=== PATIENT | male | born 1960 | race Caucasian/White ===

== ENCOUNTER 2017-05-09 11:25 | Emergency (ER) | payer BC ==
[2017-05-09 11:28] VITALS: BP 187/115; PULSE 85; RESP 18; TEMP 98.5; O2SAT 97
[2017-05-09] MEDS ORDERED: LISI20TA PO (12:16)
[2017-05-09] MEDS ORDERED: SIMV20TA PO (12:16)
[2017-05-09] MEDS ORDERED: DOXYCYCLINE HYCLATE 100 MG CAP PO ONE (12:30)
[2017-05-09] MEDS ORDERED: TETANUS/DIPHTHERIA TOXOID ADULT 0.5 ML VIAL IM ONE (12:30)
[2017-05-09] MEDS ORDERED: MORPHINE SULFATE 2 MG/ML INJ IM ONE (12:30)
--- NOTE | 2017-05-09 12:31 | RADRPT ---
EXAM DATE/TIME: 05/09/2017 11:52 [place] COMPARISON: No previous studies available for comparison. INDICATIONS : Foreign body, possible stingray srinivasan. MEDICAL HISTORY : None. SURGICAL HISTORY : None. ENCOUNTER: Initial ACUITY: 1 day PAIN SCORE: 10/10 LOCATION: Left proximal 4th digit. FINDINGS: Two view examination of the left hand demonstrates no soft tissue swelling, dislocation, or fracture. The joint spaces are maintained. Bony mineralization is normal. No definite radiopaque foreign yimi dies demonstrated. CONCLUSION: No definite radiopaque foreign body. Boyd Joseph MD on May 09, 2017 at 12:28 Board Certified Radiologist. This report was verified electronically.
[2017-05-09] MEDS ORDERED: DOXY100C PO (12:33)
[2017-05-09] MEDS ORDERED: IBUP1TAB7 PO (12:33)
[2017-05-09] MEDS ORDERED: NORC5TAB PO (12:33)
--- NOTE | 2017-05-09 12:33 | PD ---
HPI Chief Complaint: Bite or Sting Time Seen by Provider: 12:12 Travel History International Travel<30 days: No Contact w/Intl Traveler<30days: No Traveled to known affect area: No History of Present Illness HPI 56-year-old male presents to the emergency Department with complaint of a stingray sting to his left hand fourth digit that occurred today while fishing. Denies being up-to-date on his tetanus x-ray showed. Denies anesthesias, loss of sensation to the affected hand. Reports decreased range of motion at the MCP joints of the left hand. Reports swelling and redness. Pain is 7/10. Better under hot water. He describes it as a burning sensation. No known allergies. Has no other medical complaints. No other modifying factors or associated signs and symptoms. PFSH Past Medical History Cardiovascular Problems: Yes (HTN) Hypertension: Yes Kidney Stones: Yes Tetanus Vaccination: > 5 Years Past Surgical History Genitourinary Surgery: Yes (for kidney stone) Social History Alcohol Use: Yes Tobacco Use: No Substance Use: No Allergies-Medications (Allergen,Severity, Reaction): Coded Allergies: No Known Allergies (Unverified , 05/09/17) Reported Meds & Prescriptions Reported Meds & Active Scripts Active Ibuprofen 800 Mg Tab 800 Mg PO Q6HR PRN [place] (Hydrocodone-Acetaminophen) 5 Mg-325 Mg Tab 1 Tab PO Q4H PRN Doxycycline Hyclate 100 Mg Cap 100 Mg PO BID 10 Days Reported Lisinopril-Hctz 20-12.5 Mg Tab 1 Tab PO DAILY Simvastatin 20 Mg Tab 20 Mg PO DAILY Review of Systems Except as stated in HPI: all other systems reviewed are Neg Physical Exam Narrative GENERAL: Well-nourished, well-developed male patient, in no acute distress; afebrile, nontoxic-appearing SKIN: Warm and dry. Ventral aspect of left fourth finger with superficial cut; no palpable foreign body; all finger joints with full range of motion; decreased range of motion at the MCP joint; ventral aspect of hand is edematous and erythematous; erythema may be related to the patient running hot water on the surface of his hand for pain control; sensory intact all fingers; all fingers are pink and warm. Left upper Ixodes supple and non-tense 2+ radial pulse and sensory intact without erythema edema; no lymphangitis. HEAD: Atraumatic. Normocephalic. EYES: Pupils equal and round. No scleral icterus. No injection or drainage. ENT: Mucosa pink and moist. Airway patent. NECK: Trachea midline. CARDIOVASCULAR: Regular rate. RESPIRATORY: No accessory muscle use. GASTROINTESTINAL: Flat. MUSCULOSKELETAL: No obvious deformities. No clubbing. No cyanosis. No edema. NEUROLOGICAL: Awake and alert. Oriented 3. No obvious cranial nerve deficits. Motor grossly within normal limits. Normal speech. PSYCHIATRIC: Appropriate mood and affect; insight and judgment normal. Data Data Last Documented VS Vital Signs Date Time Temp Pulse Resp B/P (MAP) Pulse Ox O2 Delivery O2 Flow Rate FiO2 05/09/17 12:55 05/09/17 11:28 98.5 85 18 97 Room Air Orders Orders Hand, Limited (2vws) (05/09/17 ) Tetanus/Diphtheria Tox Adult (Tetanus/Di (05/09/17 12:30) Morphine Inj (Morphine Inj) (05/09/17 12:30) Doxycycline (Vibramycin) (05/09/17 12:30) Ed Discharge Order (05/09/17 12:44) [facility] Medical Decision Making Medical Screen Exam Complete: Yes Emergency Medical Condition: Yes Medical Record Reviewed: Yes Differential Diagnosis Marine animal sting, medical clearance, cellulitis Narrative Course 56-year-old male with a tingling to the left fourth finger from a stingray. Tetanus updated. Morphine and doxycycline ordered. Left hand x-ray concludes: Hand X-Ray 05/09/17 0000 Signed Impressions: Service Date/Time: Tuesday, May 09, 2017 11:52 - CONCLUSION: No definite radiopaque foreign body. Boyd Joseph MD X-ray findings discussed with the patient. Doxycycline, [place], ibuprofen prescribed for home. Instructed patient to follow up with hand surgeon. Instructed patient to follow up with primary care provider. Patient verbalizes understanding and agreement with treatment plan. Patient is medically cleared and stable for discharge. Discussed reasons to return to the emergency department. Patient agrees with treatment plan. The patients vital signs are stable and the patient is stable for outpatient follow-up and treatment. Patient discharged home, stable and in no acute distress. Diagnosis Primary Impression: Marine animal sting Qualified Codes: T63.691A - Toxic effect of contact with other venomous marine animals, accidental (unintentional), initial encounter Referrals: Hand Surgeon Primary Care Physician Patient Instructions: General Instructions, Marine Animal Bite or Sting (ED) Additional Instructions: Antibiotics as prescribed Ibuprofen or Tylenol as directed and as needed for pain and inflammation Soaking it in hot water or use heating pad to help relieve pain Follow-up with primary care provider Follow-up with hand surgeon Return to the emergency department immediately for worsening of symptoms Med/Other Pt SpecificInfo: Prescription(s) given Scripts Ibuprofen (Ibuprofen) 800 Mg Tab 800 MG PO Q6HR Y for PAIN, #30 TAB 0 Refills Prov: Gladys Bauer 05/09/17 Hydrocodone-Acetaminophen ([place]) 5 Mg-325 Mg Tab 1 TAB PO Q4H Y for PAIN, #20 TAB 0 Refills Prov: Gladys Bauer 05/09/17 Doxycycline Hyclate (Doxycycline Hyclate) 100 Mg Cap 100 MG PO BID for Infection for 10 Days, #20 CAP 0 Refills Prov: Gladys Bauer 05/09/17 Disposition: 01 DISCHARGE HOME Condition: Stable Gladys Bauer May 09, 2017 12:33
== END 2017-05-09 13:15 | disposition home or self-care (01) ==
LOC: NEPD 11:25
DX: T63.511A Toxic effect of contact with stingray, accidental (unintentional), initial encounter (principal); I10 Essential (primary) hypertension; Z23 Encounter for immunization
CPT/HCPCS: 73120; 90471; 90714; 96372; 99284; J2270